=== PATIENT | male | born 1965 | race Caucasian/White ===

== ENCOUNTER 2020-02-22 09:00 | Outpatient (RCR) | payer OTHER, SELFPAY ==
--- NOTE | 2020-01-06 16:42 | HP.PTEVAL ---
Patient's Visit Information LILIANA LOUISE is a 54 year old M referred to Physical Therapy by EDI SINGH with a diagnosis of PD. Date of Evaluation: 01/06/20 Physical Therapist: CHRIS Jurado - Visit Plan Frequency: 2x /Week Duration: 4 Weeks Plan: Pt was informed that we do not have a BIG program here but he was still interesdted in coming into PT to work 2X/ week for 4 weeks for HEP at the end of the 4 weeks for balance, gait, VOR exercises, functional activities, multi-tasking, repeated movements with HEP. - Subjective Pt was diagnosed 3-4 years ago with PD by Dr Rowan. Pt has no vertigo and his hearing is normal. 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 suffers from emotional and the tremors. Takes [id number] 7 X/ day. He is seeing someone for his mental issues. He takes meds for depression. Dr Peterson follows him for his medical. He mows a lot of grass... its an all day event. Pt reports that his tremors are present here or there... unpredicatable. His balance is off and he often leans into a chair or a wall. Pt has had falls but not lately. He has trouble getting up off the floor when he squats down. He is amb without a walker or a cane at this point. He has one step into the home and he uses the wall to do that. He has no freezing episodes. reports that the pt has had several nightmares lately. - Objective Gait: Walks with no arm swing or trunk swing. He has occassional veering. with occ toe scuffing. Pt gets dizzy with head turns and increase veering. Pt does catch toe with gait throughout eval. FGA: . TU.28 seconds. Pt is able to walk on heel and toes ( some retro LOB when on his heels). LE MMT: B hip flex, B knee flex and knee ext, B hip abd B 4+/5. Sit to stand: able to get up out of the chair without using. Smooth pursuit... has a hard time keeping focused on moving object with some saccade catch up to correct. - Balance Scores Functional Gait Assessment Score: 26 % Disability: 13.3400 - Goals Goal 1:: I HEP Goal Time Frame: 4-6 Weeks Goal 2:: Be able to walk 250 feet with no catching foot or veering Goal Time Frame: 4-6 Weeks Goal 3:: Be able to to walk 75 feet with head turns without veering or feeling of dizziness/unsteadiness Goal Time Frame: 4-6 Weeks Goal 4:: Be able to perform multi-task execises with min verabal correction Goal Time Frame: 4-6 Weeks - Rehabilitation Potential Rehabilitation Potential: Good - Anticipated Interventions Patient/Client Instruction: Educate patient on: Condition, Plan of Care For the Purpose of:: To improve muscle performance and motor function, To improve ability to perform ADL's, To increase tolerance to activity/condition/position, To improve performance and independence with ADL's, To improve ability of physical actions for home/community/work/leisure, To improve gait and locomotor functions, To increase flexibility/ROM, To improve endurance, To improve balance, To improve safety with gait Therapeutic Exercise to Include: Strength training, Balance training, Postural training, Flexibilty training, Gait and locomotor training, Neuromotor development, Active ROM For the Purpose of:: To increase ROM, To improve nutrient delivery to tissue, To increase oxygenation perfusion, To improve muscle performance and motor function, To improve ability to perform ADL's, To increase tolerance to activity/condition/position, To improve performance and independence with ADL's, To decrease level of supervision to perform tasks, To improve ability of physical actions for home/community/work/leisure, To improve gait and locomotor functions, To improve balance, To improve safety with gait Functional Training to Include: Gait training For the Purpose of:: To improve gait and locomotor functions, To improve safety with gait Thank you for the opportunity to evaluate your patient. For Medicare and Medicare HMO plans, please review the plan of care and approve it. It will need to be FAXED BACK to us at [phone] for Medicare purposes. For Medicare only, by signing this I certify the plan of care. Please let me know if there are questions or concerns regarding this plan of care. Physician Signature: Date:
--- NOTE | 2020-02-03 11:04 | HP.PTREVAL_ITS ---
EDI SINGH, It has been my pleasure to treat LILIANA LOUISE over the last 9 visits for PD. Please see the progress note below for an update on the physical therapy plan of care! Subjective: Pt feels that his standing has improved, stairs, getting out of a chair. He still has balance issues with quick turns and head turns or squatting or getting off the floor but he can pick up attendant a grocery bag. Objective/Function: Pt struggles still with turning fast and confusion with multi-tasking at times. He is gets dizzy with head movements and has to stop and regain his balance. Plan Plan: 2X/ week for 3 additional weeks for HEP balance, gait, VOR exercises, functional activities, multi-tasking, repeated movements with HEP. Goals Goal 1:: I HEP Goal Time Frame: 4-6 Weeks Goal Progress: Progressing Goal 2:: Be able to walk 250 feet with no catching foot or veering Goal Time Frame: 4-6 Weeks Goal Progress: Goal Met Goal 3:: Be able to to walk 75 feet with head turns without veering or feeling of dizziness/unsteadiness Goal Time Frame: 4-6 Weeks Goal Progress: Progressing Goal 4:: Be able to perform multi-task execises with min verabal correction Goal Time Frame: 4-6 Weeks Goal Progress: Progressing Anticipated Interventions Patient/Client Instruction: Educate patient on: Condition, Plan of Care For the Purpose of:: To improve muscle performance and motor function, To improve ability to perform ADL's, To increase tolerance to activity/condition/position, To improve performance and independence with ADL's, To improve ability of physical actions for home/community/work/leisure, To improve gait and locomotor functions, To increase flexibility/ROM, To improve endurance, To improve balance, To improve safety with gait Therapeutic Exercise to Include: Strength training, Balance training, Postural training, Flexibilty training, Gait and locomotor training, Neuromotor development, Active ROM For the Purpose of:: To increase ROM, To improve nutrient delivery to tissue, To increase oxygenation perfusion, To improve muscle performance and motor function , To improve ability to perform ADL's, To increase tolerance to activity/condition/position, To improve performance and independence with ADL's, To decrease level of supervision to perform tasks, To improve ability of physical actions for home/community/work/leisure, To improve gait and locomotor functions, To improve balance, To improve safety with gait Functional Training to Include: Gait training For the Purpose of:: To improve gait and locomotor functions, To improve safety with gait Please do not hesitate to contact me at [phone] by phone or if you have questions or concerns regarding this new plan of care! Sincerely, Sofie Liriano, MPT
--- NOTE | 2020-02-08 08:29 | HP.PTREVAL_ITS ---
EDI SINGH, It has been my pleasure to treat LILIANA LOUISE over the last 10 visits for PD. Please see the progress note below for an update on the physical therapy plan of care! 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 He does not get the tremors. Objective/Function: Pt had no LOB during the treatment session Plan Plan: 2X/ week for 3 additional weeks for HEP balance, gait, VOR exercises, functional activities, multi-tasking, repeated movements with HEP. Goals Goal 1:: I HEP Goal Time Frame: 4-6 Weeks Goal Progress: Progressing Goal 2:: Be able to walk 250 feet with no catching foot or veering Goal Time Frame: 4-6 Weeks Goal Progress: Goal Met Goal 3:: Be able to to walk 75 feet with head turns without veering or feeling of dizziness/unsteadiness Goal Time Frame: 4-6 Weeks Goal Progress: Progressing Goal 4:: Be able to perform multi-task execises with min verabal correction Goal Time Frame: 4-6 Weeks Goal Progress: Progressing Anticipated Interventions Patient/Client Instruction: Educate patient on: Condition, Plan of Care For the Purpose of:: To improve muscle performance and motor function, To improve ability to perform ADL's, To increase tolerance to activity/condition/position, To improve performance and independence with ADL's, To improve ability of physical actions for home/community/work/leisure, To improve gait and locomotor functions, To increase flexibility/ROM, To improve endurance, To improve balance, To improve safety with gait Therapeutic Exercise to Include: Strength training, Balance training, Postural training, Flexibilty training, Gait and locomotor training, Neuromotor development, Active ROM For the Purpose of:: To increase ROM, To improve nutrient delivery to tissue, To increase oxygenation perfusion, To improve muscle performance and motor function, To improve ability to perform ADL's, To increase tolerance to activity/condition/position, To improve performance and independence with ADL's, To decrease level of supervision to perform tasks, To improve ability of physi tr actions for home/community/work/leisure, To improve gait and locomotor functions, To improve balance, To improve safety with gait Functional Training to Include: Gait training For the Purpose of:: To improve gait and locomotor functions, To improve safety with gait Please do not hesitate to contact me at [phone] by phone or Fax: if you have questions or concerns regarding this new plan of care! Sincerely, Sofie Liriano, MPT
--- NOTE | 2020-02-22 11:18 | HP.PTREVAL_ITS ---
EDI SINGH, It has been my pleasure to treat LILIANA LOUISE over the last 14 visits for PD. Please see the progress note below for an update on the physical therapy plan of care! Subjective: Pt goes back Apr to Neurologist. He did reach out to Neurologist and said we do not have the BIG program. Pt reports that he feels that he is better with PT. He thinks that he has improved with daily functional skills such as posture, sdjusting sitting in a chair. He feels that he can walk ok. Getting up off the ground is difficult and so is balance. Plans for exercise at home: rowing machine/bike at home. Continue with exercises given by [facility] and sequencing exercises given. Objective/Function: Pt is able to walk without catching his toe... maybe occ 1-2 times in a 30 min session. He does tend to catch his toe more if multi-tasking like drinking water and walking. He is able to walk with high knee marching with SBA without LOB or veering. He is able to walk with horizontal and vertical head turns with large steps without losing his balance. He is able to walk with EC but does tend to walk more to the R with that. Plan Plan: DC HOME to HEP... pt will foollow up with in Apr. Goals Goal 1:: I HEP Goal Time Frame: 4-6 Weeks Goal Progress: Goal Met Goal 2:: Be able to walk 250 feet with no catching foot or veering Goal Time Frame: 4-6 Weeks Goal Progress: Goal Met Goal 3:: Be able to to walk 75 feet with head turns without veering or feeling of dizziness/unsteadiness Goal Time Frame: 4-6 Weeks Goal Progress: Goal Met Goal 4:: Be able to perform multi-task execises with min verabal correction Goal Time Frame: 4-6 Weeks Goal Progress: Goal Met Anticipated Interventions Patient/Client Instruction: Educate patient on: Condition, Plan of Care For the Purpose of:: To improve muscle performance and motor function, To improve ability to perform ADL's, To increase tolerance to activity/condition /position, To improve performance and independence with ADL's, To improve ability of physical actions for home/community/work/leisure, To improve gait and locomotor functions, To increase flexibility/ROM, To improve endurance, To improve balance, To improve safety with gait Therapeutic Exercise to Include: Strength training, Balance training, Postural training, Flexibilty training, Gait and locomotor training, Neuromotor development, Active ROM For the Purpose of:: To increase ROM, To improve nutrient delivery to tissue, To increase oxygenation perfusion, To improve muscle performance and motor function, To improve ability to perform ADL's, To increase tolerance to activity/condition/position, To improve performance and independence with ADL's, To decrease level of supervision to perform tasks, To improve ability of physical actions for home/community/work/leisure, To improve gait and locomotor functions, To improve balance, To improve safety with gait Functional Training to Include: Gait training For the Purpose of:: To improve gait and locomotor functions, To improve safety with gait Please do not hesitate to contact me at [phone] by phone or if you have questions or concerns regarding this new plan of care! Sincerely, Sofie Liriano, MPT
--- NOTE | 2020-04-11 13:27 | HP.PTDCSUM ---
It has been my pleasure to treat LILIANA LOUISE referred by EDI SINGH, with the diagnosis of PD for a total of 14 visit(s). Discharge Date: 02/22/20 Please see the following information for a summary of their discharge status. Subjective: Pt goes back Apr to Neurologist. He did reach out to Neurologist and said we do not have the BIG program. Pt reports that he feels that he is better with PT. He thinks that he has improved with daily functional skills such as posture, sdjusting sitting in a chair. He feels that he can walk ok. Getting up off the ground is difficult and so is balance. Plans for exercise at home: rowing machine/bike at home. Continue with exercises given by [facility] and sequencing exercises given. % Improvement: 60 Objective/Function: Pt is able to walk without catching his toe... maybe occ 1-2 times in a 30 min session. He does tend to catch his toe more if multi-tasking like drinking water and walking. He is able to walk with high knee marching with SBA without LOB or veering. He is able to walk with horizontal and vertical head turns with large steps without losing his balance. He is able to walk with EC but does tend to walk more to the R with that. Goal 1:: I HEP Goal Progress: Goal Met Goal 2:: Be able to walk 250 feet with no catching foot or veering Goal Progress: Goal Met Goal 3:: Be able to to walk 75 feet with head turns without veering or feeling of dizziness/unsteadiness Goal Progress: Goal Met Goal 4:: Be able to perform multi-task execises with min verabal correction Goal Progress: Goal Met Plan: DC HOME to HEP... pt will foollow up with in Apr. Discharge Comments: DC PT to HEP If there are questions or concerns regarding this patient's physical therapy, please feel free to call me at [phone]. Thank you for the referral of this patient. Sincerely, Sofie Liriano, MPT
== END 2020-02-22 19:00 | disposition home or self-care (01) ==
LOC: PT 09:00
PROVIDERS: PCP Family Medicine
DX: G20 Parkinson's disease (principal)
CPT/HCPCS: 97110; 97161; 97530

== ENCOUNTER → 2024-12-29 | Outpatient (CLI) | payer MEDICARE, SELFPAY ==
[2024-12-29 18:20] LABS: AST(SGOT) 16 U/L (<=37); Alanine Aminotransfer ALT/SGPT < 5 U/L (<=46); Albumin, Serum 4.5 g/dL (3.5-5.0); Alkaline Phosphatase 72 U/L (40-129); Bilirubin, Direct 0.12 mg/dL (0.00-0.30); Globulin 2.5 g/dL (2.2-4.2)
== END | disposition home or self-care (01) ==
PROVIDERS: PCP Family Medicine; Referring Provider Student in an Organized Health Care Education/Training Program; Visit Provider Student in an Organized Health Care Education/Training Program
DX: B35.1 Tinea unguium (principal)
CPT/HCPCS: 36415; 80076